=== PATIENT | male | born 1975 | race Caucasian/White ===

== ENCOUNTER 2021-07-31 19:09 | Inpatient (IN) | payer BC, SELFPAY ==
[2021-07-31] MEDS ORDERED: Lorazepam 2 MG/ML VIAL ONE ×3 (19:24→21:37)
[2021-07-31] MEDS ORDERED: Ondansetron PF 4 MG/2 ML Vial ONE (19:50)
[2021-07-31 20:19] LABS: Hemoglobin 19.3 g/dL (14.0-18.0); Mean Corpuscular Hemoglobin 36.5 pg (27.0-31.0); Red Blood Cell (RBC) Count 5.29 mill/uL (4.70-6.10); White Blood Cell (WBC) Count 11.5 thou/uL (4.8-10.8)
[2021-07-31 20:20] LABS: #Lymphocytes 0.4 thou/uL (1.20-3.40); #Monocytes 0.5 thou/uL (0.11-0.59); #Neutrophils 10.6 thou/uL (1.40-6.50); %Basophils 0.1 % (0.0-1.0); %Eosinophils 0.1 % (0.0-10.0); %Lymphocytes 3.7 % (21.0-51.0); %Monocytes 4.5 % (0.0-10.0); %Neutrophils 91.6 % (42.0-75.0); Mean Platelet Volume 6.7 fL (7.4-10.4); Platelet Count 192 thou/uL (130-400); RBC Distribution Width 12.2 % (11.5-14.5)
[2021-07-31 20:33] LABS: ALT (SGPT) 17 U/L (8-55); AST (SGOT) 67 U/L (5-34); Albumin 3.9 g/dL (3.5-5.0); Alkaline Phosphatase 61 U/L (40-110); BUN (Urea Nitrogen) 14 mg/dL (8.9-20.6); Calc. Creatinine Clearance 0 mL/min (70-130); Calcium 8.3 mg/dL (7.8-10.44); Globulin 3.5 g/dL (2.4-3.5); Glucose 134 mg/dL (70-105); Lipase 21 U/L (8-78); Magnesium 1.2 mg/dL (1.6-2.6); Protein, Total 7.4 g/dL (6.0-8.3)
[2021-07-31 20:36] LABS: Carbon Dioxide 38 mmol/L (22-29)
[2021-07-31 21:18] LABS: Potassium 1.6 mmol/L (3.5-5.1); Sodium 117 mmol/L (136-145)
[2021-07-31] MEDS ORDERED: Thiamine HCl 500 MG in Sodium Chloride 0.9% 250 ML 250 ML IVPB SCH (21:30)
[2021-07-31] MEDS ORDERED: Magnesium 2 GM/50 ML BAG (IN WATER) ONE (21:33)
[2021-07-31 21:34] LABS: Chloride Less than 65 mmol/L (98-107)
[2021-07-31] MEDS ORDERED: Potassium Chloride 20 MEQ TAB PO SCH (21:45)
[2021-07-31] MEDS ORDERED: Potassium Chloride 40 MEQ in Sodium Chloride 0.9% 250 ML 250 ML IVPB SCH (21:45)
[2021-07-31] MEDS ORDERED: Magnesium 2 GM/50 ML 2 GM in Premix Bag 1 BAG IVPB SCH (22:00)
[2021-07-31 22:31] LABS: Acetaminophen Less than 6.0 mcg/mL (10.0-30.0); Alcohol Less than 10 mg/dL (Less than 10); Salicylate Less than 8.0 mg/dL (15.0-30.0)
[2021-07-31] MEDS ORDERED: Meropenem 1 GM in Sodium Chloride 0.9% 100 ML IVPB SCH (22:37)
[2021-07-31] MEDS ORDERED: Rocuronium Bromide 10 MG/ML (10ML VIAL) ONE (23:11)
[2021-07-31 23:35] LABS: Actual Bicarbonate (HCO3a) 43.4 mEq/L (22-28); Analyzer IN Cardio ER; Base Excess (BEa) 19.5 mEq/L (-2.0 to +3.0); Calcium, Ionized (arterial) 0.86 mmol/L (1.12-1.30); Carboxyhemoglobin (COHb) 0.5 gm% (0.0-3.0); Hemoglobin (Hb) 19.8 g/dL (14.0-18.0); O2 Tension (PaO2), arterial 134.8 mmHg (80.0-100.0); Potassium - ABG Lab 1.99 mmol/L (3.70-5.30)
[2021-07-31 23:40] LABS: Puncture Site LRA; pH, Arterial 7.63 (7.35-7.45)
[2021-08-01] MEDS ORDERED: Sodium Chloride 3% 500 ML IVPB SCH ×3 (00:45→05:45)
[2021-08-01 00:55] LABS: Bilirubin Negative (Negative); Blood, Urine 1+ (Negative); Clarity Clear (Clear); Glucose, Urine (Dipstick) Normal (Negative); Ketone, Urine Trace mg/dL (Negative); Leukocyte Negative Leu/uL (Negative); Nitrite Negative (Negative); Protein, Urine (Dipstick) 70 mg/dL (Neg-Trace); RBC/HPF 0-3 HPF (0-3); Specific Gravity, Urine 1.012 (1.002-1.036); Squamous Epithelial 0-3 HPF (0-3); Urobilinogen Normal mg/dL (Less than 2); WBC/HPF 0-3 HPF (0-3)
[2021-08-01 00:59] LABS: Bacteria/HPF 1+ HPF (None Seen)
[2021-08-01 01:01] LABS: Urine Culture Reflex Yes Yes
[2021-08-01 01:09] LABS: Lactic Acid 1.5 mmol/L (0.5-2.2)
[2021-08-01 01:13] LABS: Bilirubin, Total 3.4 mg/dL (0.2-1.2)
[2021-08-01 01:15] LABS: ALT (SGPT) 17 U/L (8-55); AST (SGOT) 70 U/L (5-34); Acetaminophen Less than 6.0 mcg/mL (10.0-30.0); Albumin 3.6 g/dL (3.5-5.0); Alcohol Less than 10 mg/dL (Less than 10); Alkaline Phosphatase 53 U/L (40-110); BUN (Urea Nitrogen) 21 mg/dL (8.9-20.6); Bilirubin, Total 3.4 mg/dL (0.2-1.2); Calc. Creatinine Clearance 80 mL/min (70-130); Calcium 8.1 mg/dL (7.8-10.44); Globulin 3.5 g/dL (2.4-3.5); Glucose 128 mg/dL (70-105); Protein, Total 7.1 g/dL (6.0-8.3); Salicylate Less than 8.0 mg/dL (15.0-30.0)
[2021-08-01 01:23] LABS: Potassium 1.5 mmol/L (3.5-5.1); Sodium 117 mmol/L (136-145)
[2021-08-01 01:24] LABS: Chloride Less than 65 mmol/L (98-107)
[2021-08-01 01:27] LABS: Carbon Dioxide 42 mmol/L (22-29)
[2021-08-01] MEDS ORDERED: MEROPENEM 1 GM/50 ML 1 GM in Premix Bag 1 BAG IVPB SCH (01:30)
[2021-08-01] MEDS ORDERED: Vancomycin 1.5 GRAM/300 ML BAG 1.5 GM in Premix Bag 1 BAG IVPB SCH ×2 (01:30→14:00)
[2021-08-01] MEDS ORDERED: Potassium Chloride 40 MEQ in Premix Bag 1 BAG IVPB SCH ×2 (02:00→06:15)
[2021-08-01] MEDS ORDERED: Potassium Chloride 20 MEQ TAB PO SCH ×2 (02:00→06:15)
[2021-08-01] MEDS ORDERED: Morphine 4 MG/ML VIAL SLOW IVP PRN (02:14)
[2021-08-01] MEDS ORDERED: Morphine 2 MG/ML VIAL SLOW IVP PRN (02:15)
[2021-08-01] MEDS ORDERED: Fentanyl BOLUS 250 ML IVPB PRN (02:15)
[2021-08-01] MEDS ORDERED: DISCONTINUE PREVIOUS NARCOTIC PAIN MEDICATIONS AND BENZODIAZEPINES FS SCH (02:15)
[2021-08-01] MEDS ORDERED: Propofol BOLUS 1,000 MG/100 ML VIAL IV PRN (02:15)
[2021-08-01] MEDS: Potassium Chloride 20 MEQ in Premix Bag 1 BAG IVPB SCH ×2 (02:22→03:30)
[2021-08-01] MEDS: Propofol 1,000 MG/100 ML VIAL IV PRN ×4 (02:34→22:15)
[2021-08-01] MEDS: Lorazepam 2 MG/ML VIAL SLOW IVP PRN ×4 (03:12→23:31)
[2021-08-01 03:34] LABS: SARS-CoV-2 NAA Rapid Test Not Detected (NotDetected)
[2021-08-01] MEDS ORDERED: Fentanyl CADD 100 ML ONE ×2 (04:01→23:40)
[2021-08-01] MEDS: Fentanyl CADD 100 ML IV SCH ×2 (04:15→23:45)
[2021-08-01 05:04] LABS: Carbon Dioxide 34 mmol/L (22-29)
[2021-08-01 05:27] LABS: BUN (Urea Nitrogen) 21 mg/dL (8.9-20.6); Calc. Creatinine Clearance 76 mL/min (70-130); Calcium 7.4 mg/dL (7.8-10.44); Glucose 99 mg/dL (70-105); Magnesium 2.2 mg/dL (1.6-2.6); Potassium 2.3 mmol/L (3.5-5.1); Sodium 118 mmol/L (136-145)
[2021-08-01 05:31] LABS: Chloride Less than 65 mmol/L (98-107)
[2021-08-01] MEDS ORDERED: Electrolyte Replacement Protocol 1 EACH FS PRN (06:02)
[2021-08-01] MEDS: Norepinephrine 8 MG in Dextrose 5% in Water 242 ML IVPB PRN ×2 (06:36→19:43)
[2021-08-01 06:40] LABS: BUN (Urea Nitrogen) 23 mg/dL (8.9-20.6); Calc. Creatinine Clearance 73 mL/min (70-130); Calcium 7.8 mg/dL (7.8-10.44); Glucose 99 mg/dL (70-105); Sodium 121 mmol/L (136-145)
[2021-08-01 06:47] LABS: Potassium 1.8 mmol/L (3.5-5.1)
[2021-08-01 06:49] LABS: Carbon Dioxide 36 mmol/L (22-29)
[2021-08-01 06:52] LABS: Chloride Less than 65 mmol/L (98-107)
[2021-08-01] MEDS ORDERED: NS 0.9% w/ 20 MEQ KCL 1,000 ML IV SCH (08:00)
[2021-08-01] MEDS: Enoxaparin Sodium 40 MG/0.4 ML SYRINGE SC SCH (08:38)
[2021-08-01] MEDS: MEROPENEM 1 GM/50 ML 1 GM in Premix Bag 1 BAG IVPB SCH ×2 (09:50→19:42)
[2021-08-01 11:00] LABS: Lactic Acid 1.9 mmol/L (0.5-2.2)
[2021-08-01 12:01] LABS: Sodium 122 mmol/L (136-145)
[2021-08-01 12:02] LABS: Glucose 128 mg/dL (70-105)
[2021-08-01 12:04] LABS: Anion Gap 19 mmol/L (10-20); Carbon Dioxide 36 mmol/L (22-29)
[2021-08-01 12:06] LABS: Calc. Creatinine Clearance 75 mL/min (70-130)
[2021-08-01 12:07] LABS: BUN (Urea Nitrogen) 22 mg/dL (8.9-20.6)
[2021-08-01 12:10] LABS: Chloride 69 mmol/L (98-107); Potassium 2.2 mmol/L (3.5-5.1)
[2021-08-01] MEDS ORDERED: Magnesium 2 GM/50 ML 2 GM in Premix Bag 1 BAG IVPB SCH (12:30)
[2021-08-01] MEDS: Potassium Chloride 40 MEQ in Premix Bag 1 BAG IVPB SCH ×4 (13:10→22:16)
[2021-08-01] MEDS: Vancomycin 1.5 GRAM/300 ML BAG 1.5 GM in Premix Bag 1 BAG IVPB SCH (15:47)
[2021-08-01 19:08] LABS: BUN (Urea Nitrogen) 23 mg/dL (8.9-20.6); Calc. Creatinine Clearance 68 mL/min (70-130); Calcium 7.8 mg/dL (7.8-10.44); Glucose 124 mg/dL (70-105)
[2021-08-01 19:12] LABS: Chloride 73 mmol/L (98-107); Potassium 2.3 mmol/L (3.5-5.1); Sodium 125 mmol/L (136-145)
[2021-08-01 19:19] LABS: Anion Gap 19 mmol/L (10-20); Carbon Dioxide 35 mmol/L (22-29)
[2021-08-01 22:36] LABS: Anion Gap 11 mmol/L (10-20); BUN (Urea Nitrogen) 20 mg/dL (8.9-20.6); Calc. Creatinine Clearance 62 mL/min (70-130); Carbon Dioxide 35 mmol/L (22-29); Chloride 77 mmol/L (98-107); Glucose 121 mg/dL (70-105)
[2021-08-01 22:54] LABS: Potassium 2.6 mmol/L (3.5-5.1)
[2021-08-01 23:01] LABS: Sodium 127 mmol/L (136-145)
[2021-08-01] MEDS ORDERED: Dextrose 5% w/ 20 mEq KCl 1,000 ML IV SCH (23:30)
[2021-08-02] MEDS: MEROPENEM 1 GM/50 ML 1 GM in Premix Bag 1 BAG IVPB SCH ×3 (01:21→17:06)
[2021-08-02 03:28] LABS: Mean Corpuscular HGB CONC 34.9 g/dL (32.0-36.0); Platelet Count 155 thou/uL (130-400); RBC Distribution Width 12.5 % (11.5-14.5); White Blood Cell (WBC) Count 12.9 thou/uL (4.8-10.8)
[2021-08-02 03:39] LABS: Lactic Acid 2.2 mmol/L (0.5-2.2)
[2021-08-02 03:42] LABS: Anion Gap 15 mmol/L (10-20); BUN (Urea Nitrogen) 20 mg/dL (8.9-20.6); Calc. Creatinine Clearance 62 mL/min (70-130); Carbon Dioxide 35 mmol/L (22-29); Chloride 78 mmol/L (98-107); Sodium 126 mmol/L (136-145)
[2021-08-02 03:43] LABS: Calcium 8.1 mg/dL (7.8-10.44); Glucose 115 mg/dL (70-105)
[2021-08-02 03:51] LABS: Potassium 2.3 mmol/L (3.5-5.1)
[2021-08-02] MEDS: Vancomycin 1.5 GRAM/300 ML BAG 1.5 GM in Premix Bag 1 BAG IVPB SCH ×2 (04:37→20:20)
[2021-08-02] MEDS: Propofol 1,000 MG/100 ML VIAL IV PRN ×3 (04:44→19:28)
[2021-08-02] MEDS: Potassium Chloride 40 MEQ in Premix Bag 1 BAG IVPB SCH ×2 (04:44→06:49)
[2021-08-02 07:30] LABS: Magnesium 2.3 mg/dL (1.6-2.6)
[2021-08-02 07:48] LABS: Phosphorus Less than 1.0 mg/dL (2.3-4.7)
[2021-08-02] MEDS ORDERED: Potassium Phosphate 30 MMOL in Sodium Chloride 0.9% 250 ML 250 ML IVPB SCH (08:00)
[2021-08-02] MEDS: Enoxaparin Sodium 40 MG/0.4 ML SYRINGE SC SCH (08:28)
[2021-08-02] MEDS: Folic Acid 1 MG TAB PER TUBE SCH (10:31)
[2021-08-02] MEDS ORDERED: Folic Acid 1 MG TAB PER TUBE SCH (10:45)
[2021-08-02 12:21] LABS: Potassium 2.7 mmol/L (3.5-5.1)
[2021-08-02] MEDS ORDERED: Potassium Chloride 20 MEQ in Premix Bag 1 BAG IVPB SCH (13:00)
[2021-08-02] MEDS: Thiamine HCl 200 MG/2 ML VIAL SLOW IVP SCH (13:08)
[2021-08-02] MEDS ORDERED: Potassium Chloride 40 MEQ in Premix Bag 1 BAG IVPB SCH (13:15)
[2021-08-02 16:01] LABS: Vancomycin, Trough 33.9 ug/mL
[2021-08-02] MEDS ORDERED: Vancomycin 1.5 GRAM/300 ML BAG 1.5 GM in Premix Bag 1 BAG IVPB SCH (16:30)
[2021-08-02 19:09] LABS: Anion Gap 21 mmol/L (10-20); BUN (Urea Nitrogen) 24 mg/dL (8.9-20.6); Calc. Creatinine Clearance 57 mL/min (70-130); Calcium 7.7 mg/dL (7.8-10.44); Carbon Dioxide 22 mmol/L (22-29); Chloride 87 mmol/L (98-107); Glucose 94 mg/dL (70-105); Potassium 3.4 mmol/L (3.5-5.1); Sodium 127 mmol/L (136-145)
[2021-08-02] MEDS ORDERED: Fentanyl CADD 100 ML ONE (19:23)
[2021-08-02] MEDS: Fentanyl CADD 100 ML IV SCH (19:28)
[2021-08-02] MEDS ORDERED: Potassium Chloride 40 MEQ/100 ML PREMIX BAG IVPB SCH ×2 (20:15→20:30)
[2021-08-02] MEDS: Famotidine/PF 20 mg/2ml Vial SLOW IVP SCH (20:50)
[2021-08-02 21:04] LABS: Magnesium 1.9 mg/dL (1.6-2.6); Phosphorus 3.5 mg/dL (2.3-4.7)
[2021-08-02] MEDS ORDERED: Magnesium 2 GM/50 ML 2 GM in Premix Bag 1 BAG IVPB SCH (23:00)
[2021-08-03] MEDS: MEROPENEM 1 GM/50 ML 1 GM in Premix Bag 1 BAG IVPB SCH ×4 (00:57→21:20)
[2021-08-03] MEDS: Propofol 1,000 MG/100 ML VIAL IV PRN ×3 (01:29→17:31)
[2021-08-03 04:18] LABS: Phosphorus 3.8 mg/dL (2.3-4.7); Vancomycin, Random 19.6 ug/mL (See Comment)
[2021-08-03 04:21] LABS: ALT (SGPT) 15 U/L (8-55); AST (SGOT) 45 U/L (5-34); Albumin 2.8 g/dL (3.5-5.0); Alkaline Phosphatase 58 U/L (40-110); Anion Gap 15 mmol/L (10-20); BUN (Urea Nitrogen) 24 mg/dL (8.9-20.6); Bilirubin, Direct 0.7 mg/dL (0.1-0.3); Bilirubin, Total 1.3 mg/dL (0.2-1.2); Calc. Creatinine Clearance 59 mL/min (70-130); Calcium 8.2 mg/dL (7.8-10.44); Carbon Dioxide 31 mmol/L (22-29); Chloride 87 mmol/L (98-107); Glucose 88 mg/dL (70-105); Magnesium 2.9 mg/dL (1.6-2.6); Protein, Total 5.9 g/dL (6.0-8.3); Sodium 130 mmol/L (136-145)
[2021-08-03 04:25] LABS: Potassium 2.8 mmol/L (3.5-5.1)
[2021-08-03 04:38] LABS: Band 19 % (5-11); Eosinophils 2 % (0-10); Hemoglobin 16.2 g/dL (14.0-18.0); Lymphocytes 8 % (21-51); MDiff Complete? YES; Mean Corpuscular HGB CONC 34.9 g/dL (32.0-36.0); Mean Corpuscular Hemoglobin 36.2 pg (27.0-31.0); Mean Platelet Volume 7.3 fL (7.4-10.4); Monocytes 2 % (0-10); Neutrophil 69 % (42-75); Platelet Count 126 thou/uL (130-400); RBC Distribution Width 12.6 % (11.5-14.5); Red Blood Cell (RBC) Count 4.47 mill/uL (4.70-6.10); White Blood Cell (WBC) Count 12.9 thou/uL (4.8-10.8)
[2021-08-03] MEDS: Potassium Chloride 40 MEQ in Premix Bag 1 BAG IVPB SCH ×2 (05:01→06:08)
[2021-08-03] MEDS: Norepinephrine 8 MG in Dextrose 5% in Water 242 ML IVPB PRN (05:13)
[2021-08-03] MEDS: Vancomycin HCl 750 MG in Sodium Chloride 0.9% 250 ML 250 ML IVPB SCH ×2 (06:08→17:32)
[2021-08-03] MEDS: Enoxaparin Sodium 40 MG/0.4 ML SYRINGE SC SCH (08:26)
[2021-08-03] MEDS: Folic Acid 1 MG TAB PER TUBE SCH (08:26)
[2021-08-03] MEDS: Famotidine/PF 20 mg/2ml Vial SLOW IVP SCH ×2 (08:26→21:20)
[2021-08-03] MEDS: Lorazepam 2 MG/ML VIAL SLOW IVP PRN ×3 (08:33→17:31)
[2021-08-03] MEDS: Thiamine HCl 200 MG/2 ML VIAL SLOW IVP SCH (10:30)
[2021-08-03 12:23] LABS: Potassium 3.6 mmol/L (3.5-5.1)
[2021-08-03] MEDS ORDERED: Fentanyl CADD 100 ML ONE (15:17)
[2021-08-03] MEDS: Fentanyl CADD 100 ML IV SCH (15:21)
[2021-08-03] MEDS ORDERED: Potassium Chloride 40 MEQ in Premix Bag 1 BAG IVPB SCH (17:45)
[2021-08-04] MEDS: Propofol 1,000 MG/100 ML VIAL IV PRN ×3 (00:30→20:39)
[2021-08-04 05:06] LABS: Phosphorus 3.2 mg/dL (2.3-4.7)
[2021-08-04 05:11] LABS: ALT (SGPT) 18 U/L (8-55); AST (SGOT) 47 U/L (5-34); Albumin 2.6 g/dL (3.5-5.0); Alkaline Phosphatase 51 U/L (40-110); Anion Gap 13 mmol/L (10-20); BUN (Urea Nitrogen) 21 mg/dL (8.9-20.6); Bilirubin, Total 0.8 mg/dL (0.2-1.2); Calc. Creatinine Clearance 80 mL/min (70-130); Calcium 8.5 mg/dL (7.8-10.44); Carbon Dioxide 29 mmol/L (22-29); Chloride 94 mmol/L (98-107); Globulin 2.6 g/dL (2.4-3.5); Glucose 107 mg/dL (70-105); Magnesium 1.9 mg/dL (1.6-2.6); Protein, Total 5.2 g/dL (6.0-8.3); Sodium 133 mmol/L (136-145)
[2021-08-04] MEDS: MEROPENEM 1 GM/50 ML 1 GM in Premix Bag 1 BAG IVPB SCH ×3 (05:15→21:03)
[2021-08-04] MEDS: Vancomycin HCl 750 MG in Sodium Chloride 0.9% 250 ML 250 ML IVPB SCH ×2 (05:15→17:44)
[2021-08-04 05:20] LABS: Mean Corpuscular HGB CONC 33.5 g/dL (32.0-36.0); Mean Corpuscular Hemoglobin 35.5 pg (27.0-31.0); Mean Platelet Volume 7.9 fL (7.4-10.4); Platelet Count 119 thou/uL (130-400); RBC Distribution Width 12.4 % (11.5-14.5); Red Blood Cell (RBC) Count 4.21 mill/uL (4.70-6.10); White Blood Cell (WBC) Count 7.2 thou/uL (4.8-10.8)
[2021-08-04 06:04] LABS: MDiff Complete? YES; Macrocytosis SLIGHT = 6-15 cells (100X) (0-5/hpf); Platelet Morphology Comment Appears Decreased
[2021-08-04] MEDS ORDERED: Magnesium 2 GM/50 ML 2 GM in Premix Bag 1 BAG IVPB SCH (07:00)
[2021-08-04] MEDS ORDERED: Potassium Chloride 40 MEQ in Sodium Chloride 0.9% 250 ML 250 ML IVPB SCH (08:00)
[2021-08-04 08:23] LABS: Actual Bicarbonate (HCO3a) 28.2 mEq/L (22-28); CO2 Tension 36.8 mmHg (35.0-45.0); Calcium, Ionized (arterial) 1.14 mmol/L (1.12-1.30); Carboxyhemoglobin (COHb) 0.5 gm% (0.0-3.0); Hemoglobin (Hb) 15.4 g/dL (14.0-18.0); O2 Tension (PaO2), arterial 103.3 mmHg (80.0-100.0); Potassium - ABG Lab 3.52 mmol/L (3.70-5.30)
[2021-08-04 08:24] LABS: Puncture Site RRA
[2021-08-04] MEDS: Folic Acid 1 MG TAB PER TUBE SCH (08:40)
[2021-08-04] MEDS: Enoxaparin Sodium 40 MG/0.4 ML SYRINGE SC SCH (08:40)
[2021-08-04] MEDS: Famotidine/PF 20 mg/2ml Vial SLOW IVP SCH ×2 (08:42→20:39)
[2021-08-04] MEDS ORDERED: Potassium Bicarbonate/Cit Ac 20 MEQ TAB PER TUBE SCH (10:30)
[2021-08-04] MEDS: Thiamine HCl 200 MG/2 ML VIAL SLOW IVP SCH (10:58)
[2021-08-04] MEDS ORDERED: Lactated Ringer's 1,000 ML IV SCH (12:00)
[2021-08-04 13:12] VITALS: BMI 21.4
[2021-08-04] MEDS: Lorazepam 2 MG/ML VIAL SLOW IVP PRN ×2 (16:42→19:30)
[2021-08-04 17:45] LABS: Vancomycin, Trough 15.8 ug/mL
[2021-08-04] MEDS: Potassium Bicarbonate/Cit Ac 20 MEQ TAB PER TUBE SCH (20:39)
[2021-08-05 03:23] LABS: Creatinine, Urine 152.41 mg/dL (63-166)
[2021-08-05] MEDS: Propofol 1,000 MG/100 ML VIAL IV PRN ×2 (03:53→09:12)
[2021-08-05 04:44] LABS: Anion Gap 12 mmol/L (10-20); BUN (Urea Nitrogen) 16 mg/dL (8.9-20.6); Calc. Creatinine Clearance 101 mL/min (70-130); Calcium 8.6 mg/dL (7.8-10.44); Carbon Dioxide 29 mmol/L (22-29); Chloride 100 mmol/L (98-107); Glucose 90 mg/dL (70-105); Magnesium 1.8 mg/dL (1.6-2.6); Potassium 3.7 mmol/L (3.5-5.1); Sodium 137 mmol/L (136-145)
[2021-08-05 04:45] LABS: Phosphorus 4.6 mg/dL (2.3-4.7)
[2021-08-05 04:56] LABS: Hemoglobin 14.9 g/dL (14.0-18.0); Mean Corpuscular HGB CONC 33.5 g/dL (32.0-36.0); Mean Corpuscular Hemoglobin 36.4 pg (27.0-31.0); Mean Platelet Volume 7.7 fL (7.4-10.4); Platelet Count 138 thou/uL (130-400); RBC Distribution Width 12.5 % (11.5-14.5); Red Blood Cell (RBC) Count 4.09 mill/uL (4.70-6.10); White Blood Cell (WBC) Count 3.9 thou/uL (4.8-10.8)
[2021-08-05] MEDS: Vancomycin HCl 750 MG in Sodium Chloride 0.9% 250 ML 250 ML IVPB SCH (05:21)
[2021-08-05] MEDS: MEROPENEM 1 GM/50 ML 1 GM in Premix Bag 1 BAG IVPB SCH (05:21)
[2021-08-05] MEDS: Lorazepam 2 MG/ML VIAL SLOW IVP PRN ×2 (05:24→09:11)
[2021-08-05 05:36] LABS: Eosinophils 8 % (0-10); Lymphocytes 39 % (21-51); MDiff Complete? YES; Monocytes 2 % (0-10); Neutrophil 51 % (42-75)
[2021-08-05 06:29] LABS: Base Excess (BEa) 3.4 mEq/L (-2.0 to +3.0); CO2 Tension 47.4 mmHg (35.0-45.0); Calcium, Ionized (arterial) 1.18 mmol/L (1.12-1.30); Hemoglobin (Hb) 14.8 g/dL (14.0-18.0); O2 Tension (PaO2), arterial 107.2 mmHg (80.0-100.0); Potassium - ABG Lab 3.46 mmol/L (3.70-5.30)
[2021-08-05 06:31] LABS: Puncture Site RRA
[2021-08-05] MEDS ORDERED: Magnesium 2 GM/50 ML 2 GM in Premix Bag 1 BAG IVPB SCH (07:00)
[2021-08-05] MEDS: Enoxaparin Sodium 40 MG/0.4 ML SYRINGE SC SCH (08:35)
[2021-08-05] MEDS: Famotidine/PF 20 mg/2ml Vial SLOW IVP SCH ×2 (08:35→21:21)
[2021-08-05] MEDS: Potassium Bicarbonate/Cit Ac 20 MEQ TAB PER TUBE SCH (08:36)
[2021-08-05] MEDS: Folic Acid 1 MG TAB PER TUBE SCH (08:36)
[2021-08-05] MEDS ORDERED: Potassium Bicarbonate/Cit Ac 20 MEQ TAB PER TUBE SCH ×2 (10:30→21:00)
[2021-08-05] MEDS: Thiamine HCl 200 MG/2 ML VIAL SLOW IVP SCH (11:01)
[2021-08-06 06:32] LABS: Eosinophils 5 % (0-10); Hemoglobin 15.3 g/dL (14.0-18.0); Lymphocytes 24 % (21-51); MDiff Complete? YES; Mean Corpuscular HGB CONC 32.8 g/dL (32.0-36.0); Mean Corpuscular Hemoglobin 35.3 pg (27.0-31.0); Mean Platelet Volume 7.7 fL (7.4-10.4); Monocytes 11 % (0-10); Neutrophil 55 % (42-75); Platelet Count 188 thou/uL (130-400); Platelet Morphology Comment Appears Adequate; RBC Distribution Width 12.2 % (11.5-14.5); RBC Morphology Normal; Reactive Lymphocytes 5 % (0-10); Red Blood Cell (RBC) Count 4.32 mill/uL (4.70-6.10); White Blood Cell (WBC) Count 4.9 thou/uL (4.8-10.8)
[2021-08-06 06:48] LABS: Anion Gap 13 mmol/L (10-20); BUN (Urea Nitrogen) 11 mg/dL (8.9-20.6); Calc. Creatinine Clearance 119 mL/min (70-130); Calcium 8.8 mg/dL (7.8-10.44); Carbon Dioxide 26 mmol/L (22-29); Chloride 100 mmol/L (98-107); Glucose 93 mg/dL (70-105); Magnesium 1.6 mg/dL (1.6-2.6); Potassium 4.8 mmol/L (3.5-5.1); Sodium 134 mmol/L (136-145)
[2021-08-06 06:55] LABS: Phosphorus 3.4 mg/dL (2.3-4.7)
[2021-08-06] MEDS ORDERED: hydrALAZINE 20 MG/ML VIAL SLOW IVP PRN (07:50)
[2021-08-06] MEDS ORDERED: Magnesium 2 GM/50 ML 2 GM in Premix Bag 1 BAG IVPB SCH (08:00)
[2021-08-06] MEDS: Famotidine/PF 20 mg/2ml Vial SLOW IVP SCH (08:33)
[2021-08-06] MEDS: Folic Acid 1 MG TAB PER TUBE SCH (08:33)
[2021-08-06] MEDS: Amlodipine 5 MG TAB PER TUBE SCH (08:33)
[2021-08-06] MEDS: Enoxaparin Sodium 40 MG/0.4 ML SYRINGE SC SCH (08:33)
[2021-08-06] MEDS ORDERED: Enoxaparin Sodium 40 MG/0.4 ML SYRINGE SC SCH (09:00)
[2021-08-06] MEDS: Thiamine HCl 200 MG/2 ML VIAL SLOW IVP SCH (12:56)
[2021-08-06] MEDS ORDERED: Lorazepam 2 MG/ML VIAL SLOW IVP PRN (19:06)
[2021-08-06] MEDS: Thiamine 100 MG TAB PO SCH (20:31)
[2021-08-06] MEDS ORDERED: Escitalopram Oxalate 20 mg Tablet PO SCH (21:00)
[2021-08-07] MEDS: Thiamine 100 MG TAB PO SCH (08:14)
[2021-08-07] MEDS: Enoxaparin Sodium 40 MG/0.4 ML SYRINGE SC SCH (08:15)
[2021-08-07] MEDS: Amlodipine 5 MG TAB PER TUBE SCH (08:15)
[2021-08-07] MEDS: Folic Acid 1 MG TAB PER TUBE SCH (08:15)
[2021-08-07] MEDS ORDERED: Losartan 25 MG TAB PO SCH (09:00)
[2021-08-07 12:57] VITALS: BP 167/112; TEMP 98.5
== END 2021-08-07 13:10 | disposition home or self-care (01) | DRG 207 ==
LOC: ERS 19:09 → CCU 22:03 → T4-A 08-06 10:53
PROVIDERS: ADMIT Student in an Organized Health Care Education/Training Program; ATTEND Internal Medicine
PROC: 02HV33Z Insertion of Infusion Device into Superior Vena Cava, Percutaneous Approach (ICD-10-PCS; 2021-07-31)
PROC: B548ZZA Ultrasonography of Superior Vena Cava, Guidance (ICD-10-PCS; 2021-07-31)
PROC: 3E033XZ Introduction of Vasopressor into Peripheral Vein, Percutaneous Approach (ICD-10-PCS; principal; 2021-08-01)
PROC: 0DH67UZ Insertion of Feeding Device into Stomach, Via Natural or Artificial Opening (ICD-10-PCS; 2021-08-01)
PROC: 5A1955Z Respiratory Ventilation, Greater than 96 Consecutive Hours (ICD-10-PCS; 2021-08-01)
PROC: 0BH17EZ Insertion of Endotracheal Airway into Trachea, Via Natural or Artificial Opening (ICD-10-PCS; 2021-08-01)
DX: J96.01 Acute respiratory failure with hypoxia (principal); F10.231 Alcohol dependence with withdrawal delirium; E87.2 Acidosis; E87.1 Hypo-osmolality and hyponatremia; N17.9 Acute kidney failure, unspecified; E87.3 Alkalosis; E46 Unspecified protein-calorie malnutrition; G31.2 Degeneration of nervous system due to alcohol; Z20.822 Contact with and (suspected) exposure to COVID-19; I12.9 Hypertensive chronic kidney disease with stage 1 through stage 4 chronic kidney disease, or unspecified chronic kidney disease; E78.5 Hyperlipidemia, unspecified; E78.00 Pure hypercholesterolemia, unspecified; F32.A Depression, unspecified; E83.42 Hypomagnesemia; F17.210 Nicotine dependence, cigarettes, uncomplicated; E87.6 Hypokalemia; D75.1 Secondary polycythemia; D75.89 Other specified diseases of blood and blood-forming organs; E83.39 Other disorders of phosphorus metabolism; N18.30 Chronic kidney disease, stage 3 unspecified; E87.8 Other disorders of electrolyte and fluid balance, not elsewhere classified; Z68.22 Body mass index [BMI] 22.0-22.9, adult; Z88.0 Allergy status to penicillin; Z79.899 Other long term (current) drug therapy; Z78.1 Physical restraint status; Y90.0 Blood alcohol level of less than 20 mg/100 ml
CPT/HCPCS: 31500; 36415; 36416; 36556; 36600; 70450; 71045; 74018; 80048; 80053; 80076; 80143; 80179; 80202; 80307; 81001; 82088; 82140; 82247; 82533; 82570; 82805; 83605; 83690; 83735; 83880; 83930; 83935; 84100; 84145; 84156; 84244; 84300; 84484; 85007; 85025; 85027; 87070; 87086; 87205; 93005; 94002; 94003; 96374; 96375; 96376; J1650; J2060; J2185; J2270; J2405; J2704; J3010; J3370; J3411; J3475; J3480; J3490; J7050; J7070; J7120; J7131; S0028; U0002